=== PATIENT | male | born 1995 | race Caucasian/White ===

== ENCOUNTER → 2016-09-16 | Outpatient (CLI) | payer OTHER ==
--- NOTE | 2016-09-16 10:17 | DIAGNOSTIC IMAGING REPORT ---
LEFT WRIST 3 VIEWS CLINICAL HISTORY: Left wrist injury and pain pain. FINDINGS: 3 views of the left wrist are obtained. No prior studies are available for comparison at the time of dictation. The skeletal structures are well mineralized. There is no radiographic evidence of fracture. A metallic bracelet is present around the wrist. The Joint spaces appear maintained. The overlying soft tissues are normal as visualized. IMPRESSION: There is no radiographic evidence of left wrist fracture. Electronically signed by: Genaro Bird M.D. 09/16/2016 10:16 AM Dictated Date/Time: 09/16/2016 10:14 AM
== END | disposition home or self-care (01) ==
LOC: C.RDSM 12:00
PROVIDERS: ATTEND Internal Medicine
DX: M25.532 Pain in left wrist (principal)